=== PATIENT | female | born 1965 | race Caucasian/White ===

== ENCOUNTER 2019-01-01 12:19 | Emergency (ER) | payer OTHER, MEDICAID ==
[~2019-01-01] VITALS: Ht 170.2 cm; Wt 81.6 kg
[2019-01-01 12:39] VITALS: BP 104/75
--- NOTE | 2019-01-01 12:45 | NUR ---
Patient transferred to bed 1 via wheelchair by tech. RN evaluating patient at bedside.
--- NOTE | 2019-01-01 13:28 | NUR ---
DR ALVARADO AT BEDSIDE
--- NOTE | 2019-01-01 13:28 | NUR ---
C/O FEVER X1 DAY. RING CONDUCTOR REPORTS PT HAD TEMPERATURE OF 101 YESTERDAY, AFEBRILE AT THIS TIME WITH TEMP OF 97.7. PT HAD N/V YESTERDAY, NOT AT THIS TIME. NO DIARRHEA, LAST BM YESTERDAY. PT TREASTED FOR UTI AT [facility] W/ BACTRI, LAST DAY OF ABX IS SUPPOST TO BE TOMORROW. BED IS DOWN, LOCKED, BED RAIL X 1, ERMD TO SEE PT. MEDHX:MODERATE ID, HYPOTHYROIDISM, HTN, ANEMIA, DEPRRESSION, MUSCLE WEAKNESS
--- NOTE | 2019-01-01 13:40 | NUR ---
CAREGIVER MAXWELL STATES WILL RETURN IN APPROX 30 MIN [phone]
[2019-01-01 16:12] VITALS: BP 115/80
--- NOTE | 2019-01-01 16:12 | NUR ---
Patient discharged with v/s stable. Written and verbal after care instructions given and explained. CAREGIVER verbalized understanding. Wheel Chair Assisted with by caregiver. All questions addressed prior to discharge. Advised to follow up with PMD. PO CHALLENGED PASSED. AFEBRILE AT DISCHARGE
== END 2019-01-01 16:12 | disposition home or self-care (01) ==
LOC: MED 12:19
DX: R50.9 Fever, unspecified (principal); R11.2 Nausea with vomiting, unspecified
CPT/HCPCS: 71045; 99283; Q0092

== ENCOUNTER 2023-05-27 15:09 | Emergency (ER) | payer OTHER ==
[~2023-05-27] VITALS: Ht 167.6 cm; Wt 81.6 kg
[2023-05-27 15:15] VITALS: BP 132/65; PULSE 88; RESP 16; TEMP 98.2; O2SAT 97
[2023-05-27] MEDS ORDERED: ONDA8TAB87 PO (17:19)
[2023-05-27] MEDS ORDERED: IBUP-2213 PO (17:19)
[2023-05-27 17:39] VITALS: BP 132/61; PULSE 75; RESP 16; TEMP 97.6; O2SAT 98
== END 2023-05-27 17:35 | disposition home or self-care (01) ==
LOC: MED 15:09
DX: R10.13 Epigastric pain (principal); R11.2 Nausea with vomiting, unspecified; I10 Essential (primary) hypertension
CPT/HCPCS: 81002; 99283